=== PATIENT | female | born 1960 | race Caucasian/White ===

== ENCOUNTER → 2019-03-20 | Outpatient (CLI) | payer MEDICARE ==
--- NOTE | 2019-03-20 09:17 | Diagnostic Imaging Report ---
PROCEDURE: CT abdomen and pelvis without contrast. TECHNIQUE: Multiple contiguous axial images were obtained through the abdomen and pelvis without the use of intravenous contrast. Auto Exposure Controls were utilized during the CT exam to meet ALARA standards for radiation dose reduction. INDICATION: Rash and chronic fatigue. No prior studies are available for comparison. FINDINGS: The lung bases are clear. There is a low-density mass in the dome of the right lobe of the liver measuring 2.8 cm transverse diameter. This is indeterminate. No other liver masses are seen. Gallbladder is unremarkable. No biliary ductal dilatation is seen. The pancreas and spleen are unremarkable. No adrenal mass is identified. There are numerous 1 to 2 mm nonobstructing calculi within both kidneys. No ureteral calculi or hydronephrosis is identified. Aorta and iliac vessels are heavily calcified but non-aneurysmal. Small and large bowel loops are normal caliber. There is no obstruction. There is no ascites. The bladder is unremarkable. IMPRESSION: 1. Bilateral nonobstructing nephrolithiasis. 2. Indeterminate right lobe liver mass. Liver ultrasound or CT with and without IV contrast would be recommended for further evaluation. 3. No acute feature in the abdomen or pelvis is identified. Dictated by: Dictated on workstation # [id number]
== END ==
LOC: RAD 08:23
PROVIDERS: ATTEND Nurse Practitioner Community Health
DX: N20.0 Calculus of kidney (principal); R16.0 Hepatomegaly, not elsewhere classified; R21 Rash and other nonspecific skin eruption
CPT/HCPCS: 74176